=== PATIENT | male | born 1960 | race Caucasian/White ===

== ENCOUNTER 2016-10-24 13:06 | Emergency (ER) | payer OTHER ==
[~2016-10-24] VITALS: Ht 167.6 cm; Wt 70.0 kg
[~2016-10-24 13:06] MED LIST: FINA1TAB10; GABA-529; LISI10TA5; METF500T4; MORP15TA; ONDA4TAB21; SERT25TA; SIMV5TAB53; SODI15OR4; TERA5CAP4; TRAZ50TA47
[2016-10-24] MEDS ORDERED: TETANUS, DIPHTHERIA, PERTUSSIS VAC/PF 0.5ML (>7YR OLD) IM ONE (15:30)
[2016-10-24] MEDS ORDERED: IBUPROFEN 600MG TABLET PO ONE (15:30)
[2016-10-24 15:59] VITALS: BP 135/76
== END 2016-10-24 16:00 | disposition home or self-care (01) ==
LOC: ER 13:06
DX: S71.152A Open bite, left thigh, initial encounter (principal); W54.0XXA Bitten by dog, initial encounter; Y93.01 Activity, walking, marching and hiking; Y92.480 Sidewalk as the place of occurrence of the external cause; Z23 Encounter for immunization; I10 Essential (primary) hypertension; E11.9 Type 2 diabetes mellitus without complications; J45.909 Unspecified asthma, uncomplicated; F12.90 Cannabis use, unspecified, uncomplicated; Z79.84 Long term (current) use of oral hypoglycemic drugs; Z79.899 Other long term (current) drug therapy
CPT/HCPCS: 90471; 90715; 99283